=== PATIENT | male | born 1970 | race Caucasian/White ===

== ENCOUNTER → 2016-07-06 | Outpatient (CLI) | payer OTHER ==
[~2016-07-06] MED LIST: CHOL1000 PO; GADOXETATE DISODIUM IV PRN; IBUP-103 PO; LEVO100T7 PO; MULT-506 PO; OXYC-57 PO; PROB1TAB16 PO
--- NOTE | 2016-07-07 08:41 | DIAGNOSTIC IMAGING REPORT ---
MRI OF THE ABDOMEN WITH AND WITHOUT CONTRAST LIVER PROTOCOL CLINICAL HISTORY: Elevated alkaline phosphatase. Abdominal cramping. Liver lesion. COMPARISON STUDY: Abdominal ultrasound June 24, 2016. TECHNIQUE: Utilizing a 1.5 Neyda magnet and dedicated coil, multiplanar, multiecho imaging of the abdomen was performed pre and postcontrast administration. Post contrast imaging was performed utilizing dynamic enhancement. Injection of 10 cc of Eovist IV was unremarkable. 20 minute delayed phase imaging was performed. FINDINGS: The morphology of the liver is normal. There is fatty infiltration of the liver. Note is made of a 3.7 x 3.4 cm subcapsular segment 5 hepatic lesion with nodular incomplete enhancement with progressive fill in. This corresponds to the lesion shown on prior ultrasound. This represents a hemangioma. There is an adjacent 1.4 cm lesion which also reflects a hemangioma. The spleen, adrenal glands, left kidney and pancreas are normal. There is a 2.3 cm right renal cyst with minimal layering debris. There is no abdominal lymphadenopathy or ascites. There is a 4 mm left hepatic lobe cyst. IMPRESSION: 1. 3.7 cm right hepatic lobe lesion which corresponds to the lesion shown on prior ultrasound. The imaging characteristics are consistent with a hemangioma. In addition, there is adjacent smaller hemangioma. 2. Fatty infiltration of the liver. 3. No biliary ductal dilatation. Electronically signed by: Jeffery Abdi M.D. 07/07/2016 8:39 AM
== END | disposition home or self-care (01) ==
LOC: C.MRI 13:58
PROVIDERS: ATTEND Internal Medicine
DX: K76.9 Liver disease, unspecified (principal); R10.9 Unspecified abdominal pain; R74.8 Abnormal levels of other serum enzymes; R93.2 Abnormal findings on diagnostic imaging of liver and biliary tract

== ENCOUNTER 2016-08-10 15:43 | Emergency (ER) | payer OTHER ==
[~2016-08-10] VITALS: Ht 180.3 cm; Wt 105.0 kg
[2016-08-10 16:16] VITALS: TEMP 37.1; Ht 180.3 cm; Wt 105.0 kg
--- NOTE | 2016-08-10 18:03 | EMERGENCY ROOM VISIT NOTE ---
History Report prepared by Karl: Ellie Rodas Under the Supervision of: Dr. Andrew Escobar M.D. First contact with patient: 17:48 Chief Complaint: ABDOMINAL PAIN Stated Complaint: BACK PAIN RADIATING TO CHEST Nursing Triage Summary: c/o abd pain to left shoulder and back and now its into his chest History of Present Illness The patient is a 45 year old male who presents to the Emergency Room with complaints of waxing and waning left sided upper back pain that began about a week ago. The patient notes that the pain radiates through his left flank and under his left ribs. He has some increased pain when he takes a deep breath. He also complains of nausea and loose stool. The patient notes that the pain wakes him up in his sleep but typically does improve throughout the day. Today, his pain continued to worsen throughout the day so he decided to come to the ER. He took Tums, Pepcid, and used a heating pad without any relief. The patient did see his PCP yesterday morning for his symptoms. He does not have a history of heart disease. He had an echocardiogram several years ago which was unremarkable. He has a history of high triglycerides and high cholesterol. The patient is a smoker. Denies fever, vomiting, or other complaints. Source of History: patient Onset: a week ago Position: back (left upper) Timing: waxes/wanes Modifying Factors (Worsening): breathing (deep breaths) Associated Symptoms: + nausea, No fevers, No vomiting Review of Systems See HPI for pertinent positives & negatives. A total of 10 systems reviewed and were otherwise negative. Past Medical & Surgical Medical Problems: (1) High cholesterol (2) High triglycerides Family History No pertinent family history stated. Social History Smoking Status: Current Every Day Smoker Marital Status: Occupation Status: employed Current/Historical Medications Scheduled Cholecalciferol (Vitamin D3), 1,000 INTER.UNIT PO DAILY Levothyroxine Sodium (Levothyroxine Sodium), 100 MCG PO DAILY Scheduled PRN Ibuprofen Tab (Advil), 400 MG PO Q6H PRN for Pain or Fever Oxycodone/Acetaminophen 5MG/325MG (Percocet 5MG/325MG), 1-2 TAB PO Q4H PRN for Pain Allergies Coded Allergies: No Known Allergies (Unverified , 08/10/16) Physical Exam Vital Signs Date Time Temp Pulse Resp B/P Pulse Ox O2 Delivery O2 Flow Rate FiO2 08/10/16 22:50 81 20 147/97 96 Room Air 08/10/16 20:21 153/95 08/10/16 18:54 86 20 169/102 96 Room Air 08/10/16 18:53 96 Room Air 08/10/16 18:53 96 Room Air 08/10/16 18:50 169/102 08/10/16 18:43 88 14 95 08/10/16 17:56 88 08/10/16 17:47 154/104 08/10/16 16:16 37.1 94 16 165/116 97 Physical Exam GENERAL: Patient is a healthy-appearing well-nourished 45 year old male. HEAD: Normocephalic atraumatic EYES: Ocular movements intact pupils equal and react to light OROPHARYNX mucous membranes are moist no exudates present no erythema or edema present NECK: Supple no nuchal rigidity CHEST: Good equal expansion LUNGS: Clear and equal to auscultation CARDIAC: Normal S1 and S2 ABDOMEN: Soft nontender no guarding BACK: No CVA tenderness EXTREMITIES: No pain upon palpation normal muscle strength in all groups no clubbing cyanosis or edema NEURO: Patient is following commands is answering questions appropriately. Alert and oriented x3 Cranial Nerves 2-12 grossly intact Medical Decision & Procedures ER Provider Diagnostic Interpretation: Radiology results as stated below per my review and radiologist interpretation: CHEST ONE VIEW PORTABLE CLINICAL HISTORY: CHEST PAIN dyspnea COMPARISON STUDY: No previous studies for comparison. FINDINGS: The bones soft tissues and hemidiaphragms are normal. The cardiomediastinal silhouette is normal. The lungs are clear. The pulmonary vasculature is normal. IMPRESSION: Negative chest. Electronically signed by: Wilton Ferrell M.D. 08/10/2016 6:24 PM Dictated Date/Time: 08/10/2016 6:24 PM CHEST CTA for PULMONARY ARTERIES CT DOSE: 603.77 mGycm HISTORY: Chest pain dyspnea TECHNIQUE: Multiaxial CT images of the chest were performed following the intravenous administration of contrast to evaluate the pulmonary arteries. Maximal intensity projection images were also obtained. COMPARISON STUDY: None. FINDINGS: There is a normal caliber thoracic aorta with no evidence for dissection. There is no evidence for pulmonary embolus. No pleural effusions. No pneumothorax. The liver and spleen are unremarkable. No mediastinal or hilar lymphadenopathy. The central airways are patent. The lungs are clear. IMPRESSION: No evidence for pulmonary embolus. Electronically signed by: Wilton Ferrell M.D. 08/10/2016 7:46 PM Dictated Date/Time: 08/10/2016 7:43 PM A[address]OMEN AND PELVIS CT WITHOUT CONTRAST CT DOSE: 1498.98 mGy.cm HISTORY: Flank pain Pt c/o left sided flank pain TECHNIQUE: Multiaxial CT images of the abdomen and pelvis were performed without the use of intravenous and oral contrast according to the standard department stone protocol. COMPARISON STUDY: None. FINDINGS: Lung bases are clear. Liver spleen and pancreas are unremarkable. Evaluation the urinary tracts is compromised due to the presence of residual contrast from a prior CT of the chest. No less, there is no evidence for true obstructive change. Nephrograms appear to be symmetric bilaterally. There is no cephalic right renal cyst. Gallbladder is negative for distention. Bowel pattern is considered nonobstructive throughout. The appendix is normal. IMPRESSION: 1. Negative study within limitations of residual contrast within the urinary tracts. 2. No evidence for hydronephrosis or upper tract obstructive change. 3. Small right renal cyst. 4. Nonobstructive bowel pattern. Electronically signed by: Wilton Ferrell M.D. 08/10/2016 9:43 PM Dictated Date/Time: 08/10/2016 9:41 PM Laboratory Results 08/10/16 17:30 Red Blood Count 4.86, Mean Corpuscular Volume 87.9, Mean Corpuscular Hemoglobin 31.1, Mean Corpuscular Hemoglobin Concent 35.4, Mean Platelet Volume 10.8, Neutrophils (%) (Auto) 85.6, Lymphocytes (%) (Auto) 9.8, Monocytes (%) (Auto) 4.0, Eosinophils (%) (Auto) 0.1, Basophils (%) (Auto) 0.2, Neutrophils # (Auto) 14.90, Lymphocytes # (Auto) 1.70, Monocytes # (Auto) 0.70, Eosinophils # (Auto) 0.02, Basophils # (Auto) 0.03 08/10/16 17:30 Test 08/10/16 00:00 08/10/16 17:30 08/10/16 19:00 08/10/16 20:13 Urine Color YELLOW Urine Appearance CLEAR (CLEAR) Urine pH 6.5 (4.5-7.5) Urine Specific [place] 1.018 (1.000-1.030) Urine Protein NEG (NEG) Urine Glucose (UA) NEG (NEG) Urine Ketones NEG (NEG) Urine Occult Blood 1+ (NEG) Urine Nitrite NEG (NEG) Urine Bilirubin NEG (NEG) Urine Urobilinogen NEG (NEG) Urine Leukocyte Esterase NEG (NEG) Urine WBC (Auto) 0 /hpf (0-5) Urine RBC (Auto) 5-10 /hpf (0-4) Urine Hyaline Casts (Auto) 0 /lpf (0-5) Urine Epithelial Cells (Auto) 0-5 /lpf (0-5) Urine Bacteria (Auto) NEG (NEG) White Blood Count 17.41 K/uL (4.8-10.8) Red Blood Count 4.86 M/uL (4.7-6.1) Hemoglobin 15.1 g/dL (14.0-18.0) Hematocrit 42.7 % (42-52) Mean Corpuscular Volume 87.9 fL (80-100) Mean Corpuscular Hemoglobin 31.1 pg (25-34) Mean Corpuscular Hemoglobin Concent 35.4 g/dl (32-36) Platelet Count 322 K/uL (130-400) Mean Platelet Volume 10.8 fL (7.4-10.4) Neutrophils (%) (Auto) 85.6 % Lymphocytes (%) (Auto) 9.8 % Monocytes (%) (Auto) 4.0 % Eosinophils (%) (Auto) 0.1 % Basophils (%) (Auto) 0.2 % Neutrophils # (Auto) 14.90 K/uL (1.4-6.5) Lymphocytes # (Auto) 1.70 K/uL (1.2-3.4) Monocytes # (Auto) 0.70 K/uL (0.11-0.59) Eosinophils # (Auto) 0.02 K/uL (0-0.5) Basophils # (Auto) 0.03 K/uL (0-0.2) RDW Standard Deviation 38.4 fL (36.4-46.3) RDW Coefficient of Variation 12.0 % (11.5-14.5) Immature Granulocyte % (Auto) 0.3 % Immature Granulocyte # (Auto) 0.06 K/uL (0.00-0.02) Est Creatinine Clear Calc Drug Dose 102.3 ml/min Estimated GFR () 92.2 Estimated GFR (Non- 79.5 BUN/Creatinine Ratio 13.0 (10-20) Calcium Level 9.6 mg/dl (8.5-10.1) Total Bilirubin 0.6 mg/dl (0.2-1) Direct Bilirubin 0.1 mg/dl (0-0.2) Aspartate Amino Transf (AST/SGOT) 25 U/L (15-37) Alanine Aminotransferase (ALT/SGPT) 92 U/L (12-78) Alkaline Phosphatase 90 U/L (45-117) Total Creatine Kinase 71 U/L (39-308) Creatine Kinase MB 1.1 ng/ml (0.5-3.6) Creatine Kinase MB Ratio 1.5 (0-3.0) Troponin I < 0.015 ng/ml (0-0.045) Total Protein 7.6 gm/dl (6.4-8.2) Albumin 4.3 gm/dl (3.4-5.0) Lipase 123 U/L (73-393) Bedside Hemoglobin 13.6 g/dl (14.0-18.0) Bedside Hematocrit 40 % (42-52) Bedside Sodium 134 mEq/L (135-144) Bedside Potassium 3.8 mEq/L (3.3-5.0) Bedside Chloride 96 mEq/L (101-112) Bedside Total CO2 22 mEq/l (24-31) Anion Gap 20.0 mmol/L (16-25) Bedside Blood Urea Nitrogen 14 mg/dl (7-18) Bedside Creatinine 0.9 mg/dl (0.6-1.3) Bedside Glucose (other) 148 mg/dl (70-99) Bedside Ionized Calcium (Jayne) 1.18 mmol/l (1.12-1.32) Bedside Troponin I 0.020 ng/ml (0-0.045) Labs reviewed by ED physician. Medications Administered Medications (Trade) Dose Ordered Sig/Dyan Route Start Time Stop Time Status Last Admin Dose Admin Sodium Chloride (Nss 500ml) 500 ml @ 999 mls/hr Q31M STAT IV 08/10/16 18:10 08/10/16 18:40 DC 08/10/16 18:10 999 MLS/HR Hydromorphone HCl (Dilaudid Inj) 1 mg NOW STAT IV 08/10/16 18:10 08/10/16 18:12 DC 08/10/16 18:53 1 MG Ondansetron HCl (Zofran Inj) 4 mg NOW STAT IV 08/10/16 18:10 08/10/16 18:12 DC 08/10/16 18:52 4 MG Famotidine (Pepcid Tab) 20 mg NOW STAT PO 08/10/16 20:02 08/10/16 20:04 DC 08/10/16 20:19 20 MG Sucralfate (Carafate Tab) 1 gm NOW STAT PO 08/10/16 20:02 08/10/16 20:04 DC 08/10/16 20:19 1 GM Al Hydroxide/Mg Hydroxide (Maalox Susp) 30 ml STK-MED ONCE .ROUTE 08/10/16 20:12 08/10/16 20:14 DC 08/10/16 20:18 12 ML Lidocaine HCl (Viscous Lidocaine 2% Soln) 20 ml STK-MED ONCE .ROUTE 08/10/16 20:12 08/10/16 20:14 DC 08/10/16 20:19 12 ML Ketorolac Tromethamine (Toradol Inj) 30 mg NOW STAT IV 08/10/16 21:54 08/10/16 21:56 DC 08/10/16 22:47 30 MG Hydromorphone HCl (Dilaudid Inj) 1 mg NOW STAT IV 08/10/16 21:54 08/10/16 21:56 DC 08/10/16 22:46 1 MG Metoclopramide HCl (Reglan Inj) 10 mg NOW STAT IV 08/10/16 21:54 08/10/16 21:56 DC 08/10/16 22:47 10 MG Oxycodone/ Acetaminophen (Percocet 5/ 325MG Home Pack) 1 homepack UD ONCE PO 08/10/16 23:15 08/10/16 23:16 DC 08/10/16 23:13 1 HOMEPACK ECG Indication: chest pain Rate (beats per minute): 86 Rhythm: normal sinus Findings: no acute ischemic change, no ectopy ED Course 1752: The patient was evaluated in room B7. A complete history and physical examination was performed. 1809: Ordered Zofran Inj 4 mg IV, Dilaudid Inj 1 mg IV, NSS 500 ml @ 999 mls/hr IV. 2001: Ordered Sucralfate 1 gm PO, Pepcid Tab 30 mg PO, GI cocktail 24 ml PO. 2153: Ordered Reglan Inj 10 mg IV, Dilaudid Inj 1 mg IV, Toradol Inj 30 mg IV. 2199: Upon reexamination the patient is resting comfortably. I discussed results and treatment plan with the patient. He verbalizes agreement and understanding. The patient is ready for discharge. Medical Decision Differential diagnosis: Etiologies such as cardiac ischemia, aortic dissection, pulmonary embolism, pneumonia, pneumothorax, musculoskeletal, infections, pericarditis, myocarditis , esophageal rupture, gastrointestinal, as well as others were entertained. This is a 45-year-old male who presents emergency department complaining of left -sided flank pain. I will note the patient has a large elevation in his white blood count 17 however has no evidence of infection on examination. He is afebrile. Chest x-ray did not show anything in regards to pneumonia. Based on where the pain was located the patient was sent for CAT scan of the chest which did not show acute. In addition because the patient was continuing to have pain he was sent for a CT the abdomen and pelvis this also did not show anything acute. His repeat EKG is also unchanged. The patient also had a repeat troponin level drawn which was also 0. Based on these factors I feel that the patient can be safely discharged home. At the time I was talking to the patient at the time of discharge, he stated that he had issues with uric acid. It is conceivable that this could be a uric acid stone. For that reason the patient was given pain medication. He was given 2 doses of IV Dilaudid in the emergency department along with normal saline bolus. He will be given a prescription for Percocet however I stressed the need for follow-up with gastroenterology. Patient will return if symptoms worsen and was in agreement with the treatment plan.- Impression Primary Impression: Flank pain Scribe Attestation The scribe's documentation has been prepared under my direction and personally reviewed by me in its entirety. I confirm that the note above accurately reflects all work, treatment, procedures, and medical decision making performed by me. Departure Information Dispostion Home / Self-Care Prescriptions Oxycodone/Acetaminophen 5MG/325MG (PERCOCET 5MG/325MG) Tab 1-2 TAB PO Q4H Y for Pain, #14 TAB Prov: Andrew Escobar MD 08/10/16 Referrals RV. Perkins MD (PCP) Forms Call Back Authorization, HOME CARE DOCUMENTATION FORM, IMPORTANT VISIT INFORMATION Patient Instructions ED Flank Pain Uncertain Cause, My [facility] Additional Instructions Clear liquid diet next 48 hours Take 5 ml Maalox before every meal and at bedtime Follow up with DR White's office You received narcotic or benzodiazepene medication while in the emergency room today. Do not drive, operate heavy machinery, or drink alcohol under the influence of this medication. Take 600 mg Ibuprofen every 6 hours Take Percocet for breakthrough pain You have been examined and treated today on an emergency basis only. This is not a substitute for, or an effort to provide, complete comprehensive medical care. It is impossible to recognize and treat all injuries or illnesses in a single emergency department visit. It is therefore important that you follow up closely with [facility]. Call as soon as possible for an appointment. Thank you for your time and consideration. I look forward to speaking with you again soon. Please don't hesitate to call us if you have any questions.
[2016-08-10] MEDS ORDERED: ONDANSETRON INJ 2 MG/ML 2 ML VIAL IV STA (18:10)
[2016-08-10] MEDS ORDERED: HYDROmorphone INJ 1 MG/ML SYR IV STA ×2 (18:10→21:54)
[2016-08-10] MEDS ORDERED: SODIUM CHLORIDE 0.9% 500ML 500 ML IV STA (18:10)
[2016-08-10] MEDS ORDERED: OPTIRAY 320 IV PRN (18:15)
--- NOTE | 2016-08-10 18:26 | DIAGNOSTIC IMAGING REPORT ---
CHEST ONE VIEW PORTABLE CLINICAL HISTORY: CHEST PAIN dyspnea COMPARISON STUDY: No previous studies for comparison. FINDINGS: The bones soft tissues and hemidiaphragms are normal. The cardiomediastinal silhouette is normal. The lungs are clear. The pulmonary vasculature is normal. IMPRESSION: Negative chest. Electronically signed by: Wilton Ferrell M.D. 08/10/2016 6:24 PM Dictated Date/Time: 08/10/2016 6:24 PM
[2016-08-10 18:31] LABS: HEMATOCRIT 42.7 % (42-52); MEAN CELL VOLUME 87.9 fL (80-100); MEAN CORPUSCULAR HEMOGLOBIN 31.1 pg (25-34); MEAN CORPUSCULAR HGB CONC 35.4 g/dl (32-36); MEAN PLATELET VOLUME 10.8 fL (7.4-10.4); PLATELET COUNT 322 K/uL (130-400); RED BLOOD COUNT 4.86 M/uL (4.7-6.1); WHITE BLOOD COUNT 17.41 K/uL (4.8-10.8)
[2016-08-10] MEDS ORDERED: LEVO100T7 PO (18:32)
[2016-08-10] MEDS ORDERED: CHOL1000 PO (18:32)
[2016-08-10] MEDS ORDERED: IBUP-103 PO (18:32)
[2016-08-10 18:44] LABS: ALT/SGPT 92 U/L (12-78); AST/SGOT 25 U/L (15-37); BLOOD UREA NITROGEN 14 mg/dl (7-18); CALCIUM 9.6 mg/dl (8.5-10.1); CARBON DIOXIDE 26 mmol/L (21-32); CHLORIDE 99 mmol/L (98-107); GLUCOSE 150 mg/dl (70-99); POTASSIUM 3.9 mmol/L (3.5-5.1); SODIUM 136 mmol/L (136-145)
[2016-08-10 18:49] LABS: ALKALINE PHOSPHATASE 90 U/L (45-117); CKMB/CK RATIO 1.5 (0-3.0)
[2016-08-10 18:53] VITALS: O2SAT 96
[2016-08-10 19:16] LABS: ISTAT CREATININE 0.9 mg/dl (0.6-1.3); ISTAT HEMOGLOBIN 13.6 g/dl (14.0-18.0); ISTAT IONIZED CALCIUM 1.18 mmol/l (1.12-1.32)
[2016-08-10 19:41] LABS: BASO % 0.2 %; BASO ABS # 0.03 K/uL (0-0.2); COMPLETE YES; EOS % 0.1 %; IG% 0.3 %; LYMPH % 9.8 %; NEUT % 85.6 %
--- NOTE | 2016-08-10 19:47 | DIAGNOSTIC IMAGING REPORT ---
CHEST CTA for PULMONARY ARTERIES CT DOSE: 603.77 mGycm HISTORY: Chest pain dyspnea TECHNIQUE: Multiaxial CT images of the chest were performed following the intravenous administration of contrast to evaluate the pulmonary arteries. Maximal intensity projection images were also obtained. COMPARISON STUDY: None. FINDINGS: There is a normal caliber thoracic aorta with no evidence for dissection. There is no evidence for pulmonary embolus. No pleural effusions. No pneumothorax. The liver and spleen are unremarkable. No mediastinal or hilar lymphadenopathy. The central airways are patent. The lungs are clear. IMPRESSION: No evidence for pulmonary embolus. Electronically signed by: Wilton Ferrell M.D. 08/10/2016 7:46 PM Dictated Date/Time: 08/10/2016 7:43 PM
[2016-08-10] MEDS ORDERED: GI COCKTAIL PO STA (20:02)
[2016-08-10] MEDS ORDERED: SUCRALFATE 1 GM TAB PO STA (20:02)
[2016-08-10] MEDS ORDERED: FAMOTIDINE 20 MG TAB PO STA (20:02)
[2016-08-10] MEDS ORDERED: LIDOCAINE HCL 2% VISC SOLN 20 ML UDC ONE (20:12)
[2016-08-10] MEDS ORDERED: ALUMINUM/MAGNESIUM SUSP 30 ML UDC ONE (20:12)
[2016-08-10 20:45] LABS: URINE APPEARANCE CLEAR (CLEAR); URINE BILIRUBIN NEG (NEG); URINE COLOR YELLOW; URINE EPITHELIAL CELL AUTO 0-5 /lpf (0-5); URINE NITRITE NEG (NEG); URINE PH 6.5 (4.5-7.5); URINE SPECIFIC GRAVITY 1.018 (1.000-1.030); UROBILINOGEN NEG (NEG); ZZUR CULT IF INDIC CLEAN CATCH NO
[2016-08-10 20:47] LABS: MANUAL MICROSCOPIC REQUIRED? NO; REVIEW REQ? NO
--- NOTE | 2016-08-10 21:44 | DIAGNOSTIC IMAGING REPORT ---
ABDOMEN AND PELVIS CT WITHOUT CONTRAST CT DOSE: 1498.98 mGy.cm HISTORY: Flank pain Pt c/o left sided flank pain TECHNIQUE: Multiaxial CT images of the abdomen and pelvis were performed without the use of intravenous and oral contrast according to the standard department stone protocol. COMPARISON STUDY: None. FINDINGS: Lung bases are clear. Liver spleen and pancreas are unremarkable. Evaluation the urinary tracts is compromised due to the presence of residual contrast from a prior CT of the chest. No less, there is no evidence for true obstructive change. Nephrograms appear to be symmetric bilaterally. There is no cephalic right renal cyst. Gallbladder is negative for distention. Bowel pattern is considered nonobstructive throughout. The appendix is normal. IMPRESSION: 1. Negative study within limitations of residual contrast within the urinary tracts. 2. No evidence for hydronephrosis or upper tract obstructive change. 3. Small right renal cyst. 4. Nonobstructive bowel pattern. Electronically signed by: Wilton Ferrell M.D. 08/10/2016 9:43 PM Dictated Date/Time: 08/10/2016 9:41 PM
[2016-08-10] MEDS ORDERED: METOCLOPRAMIDE HCL INJ 5 MG/ML 2 ML VIAL IV STA (21:54)
[2016-08-10] MEDS ORDERED: KETOROLAC TROMETHAMINE 30 MG/ML VIAL IV STA (21:54)
[2016-08-10] MEDS ORDERED: OXYC-57 PO (21:56)
[2016-08-10 22:50] VITALS: BP 147/97; PULSE 81; O2SAT 96
[2016-08-10] MEDS ORDERED: PERCOCET HOME PACK PO ONE (23:15)
[2016-09-13] MEDS ORDERED: PROB1TAB16 PO (08:50)
[2016-09-13] MEDS ORDERED: MULT-506 PO (08:50)
== END 2016-08-10 23:15 | disposition home or self-care (01) ==
LOC: C.EDB 15:44
DX: R10.30 Lower abdominal pain, unspecified (principal); E78.00 Pure hypercholesterolemia, unspecified; E78.1 Pure hyperglyceridemia; F17.200 Nicotine dependence, unspecified, uncomplicated; Z79.899 Other long term (current) drug therapy

== ENCOUNTER → 2016-08-12 | Outpatient (CLI) | payer OTHER ==
[~2016-08-12] MED LIST changes: -GADOXETATE DISODIUM IV PRN
--- NOTE | 2016-08-12 14:19 | DIAGNOSTIC IMAGING REPORT ---
THORACIC SPINE 3 VIEWS ROUTINE CLINICAL HISTORY: Blood in urine. Left upper quadrant tenderness. COMPARISON STUDY: Chest CT August 10, 2016. FINDINGS: Alignment of the thoracic spine is anatomic. Vertebral body heights are maintained. There is no acute fracture or suspicious lesion. Disc spaces are preserved. IMPRESSION: Unremarkable thoracic spine radiographs. Electronically signed by: Jeffery Abdi M.D. 08/12/2016 2:17 PM Dictated Date/Time: 08/12/2016 2:11 PM
--- NOTE | 2016-08-12 14:26 | DIAGNOSTIC IMAGING REPORT ---
LEFT RIBS UNILATERAL MIN 2 VIEWS CLINICAL HISTORY: Left upper quadrant tenderness. COMPARISON STUDY: Chest CT August 10, 2016. FINDINGS: Linear left lower lung opacities suggest atelectasis. No acute left-sided rib fracture is identified. No pneumothorax is shown on this exam. IMPRESSION: No acute left rib fractures identified. Electronically signed by: Jeffery Abdi M.D. 08/12/2016 2:25 PM Dictated Date/Time: 08/12/2016 2:21 PM
== END | disposition home or self-care (01) ==
LOC: C.RAD1850 13:40
PROVIDERS: ATTEND Internal Medicine
DX: R10.812 Left upper quadrant abdominal tenderness (principal); R31.9 Hematuria, unspecified

== ENCOUNTER → 2016-08-16 | Outpatient (CLI) | payer OTHER ==
[2016-08-16 12:28] LABS: BASO % 0.6 %; BASO ABS # 0.06 K/uL (0-0.2); COMPLETE YES; EOS % 1.8 %; HEMATOCRIT 42.6 % (42-52); IG% 0.4 %; LYMPH % 25.8 %; LYMPH ABS # 2.69 K/uL (1.2-3.4); MEAN CELL VOLUME 88.8 fL (80-100); MEAN CORPUSCULAR HGB CONC 33.8 g/dl (32-36); MEAN PLATELET VOLUME 10.2 fL (7.4-10.4); MONO % 8.6 %; NEUT % 62.8 %; PLATELET COUNT 394 K/uL (130-400); WHITE BLOOD COUNT 10.44 K/uL (4.8-10.8)
[2016-08-16 12:29] LABS: URINE APPEARANCE CLEAR (CLEAR); URINE BILIRUBIN NEG (NEG); URINE COLOR YELLOW; URINE EPITHELIAL CELL AUTO 0-5 /lpf (0-5); URINE NITRITE NEG (NEG); URINE PH 6.5 (4.5-7.5); URINE SPECIFIC GRAVITY 1.004 (1.000-1.030); UROBILINOGEN NEG (NEG)
[2016-08-16 12:30] LABS: MANUAL MICROSCOPIC REQUIRED? NO; REVIEW REQ? NO
== END | disposition home or self-care (01) ==
LOC: C.LAB1850 11:28
PROVIDERS: ATTEND Internal Medicine
DX: R31.9 Hematuria, unspecified (principal)

== ENCOUNTER → 2016-09-21 | Outpatient (CLI) | payer OTHER ==
[~2016-09-21] MED LIST changes: -CHOL1000 PO; -IBUP-103 PO; -OXYC-57 PO
[2016-09-21 09:40] LABS: URINE APPEARANCE CLEAR (CLEAR); URINE BILIRUBIN NEG (NEG); URINE COLOR YELLOW; URINE EPITHELIAL CELL AUTO 0-5 /lpf (0-5); URINE NITRITE NEG (NEG); URINE SPECIFIC GRAVITY 1.009 (1.000-1.030); UROBILINOGEN NEG (NEG)
[2016-09-21 09:51] LABS: MANUAL MICROSCOPIC REQUIRED? NO; REVIEW REQ? NO
[2016-09-21 13:45] LABS: LYME DISEASE AB IGG NEG (NEG)
[2016-09-21 13:46] LABS: LYME DISEASE AB IGM NEG (NEG)
== END | disposition home or self-care (01) ==
LOC: C.LAB1850 08:21
PROVIDERS: ATTEND Internal Medicine
DX: R31.9 Hematuria, unspecified (principal); M25.50 Pain in unspecified joint

== ENCOUNTER → 2016-09-22 | Outpatient (CLI) | payer OTHER ==
[2016-09-22 16:41] LABS: HEMATOCRIT 44.8 % (42-52); MEAN CELL VOLUME 89.2 fL (80-100); MEAN CORPUSCULAR HEMOGLOBIN 30.1 pg (25-34); MEAN CORPUSCULAR HGB CONC 33.7 g/dl (32-36); MEAN PLATELET VOLUME 10.1 fL (7.4-10.4); PLATELET COUNT 484 K/uL (130-400); RED BLOOD COUNT 5.02 M/uL (4.7-6.1); WHITE BLOOD COUNT 16.94 K/uL (4.8-10.8)
[2016-09-22 17:06] LABS: RHEUMATOID FACTOR < 10.0 U/mL (0-15); URIC ACID 7.9 mg/dl (2.6-7.2)
== END | disposition home or self-care (01) ==
LOC: C.LAB1850 15:34
PROVIDERS: ATTEND Physician Assistant
DX: M25.50 Pain in unspecified joint (principal)

== ENCOUNTER → 2017-01-03 | Outpatient (CLI) | payer OTHER ==
[2017-01-03 17:47] LABS: MEAN CELL VOLUME 89.4 fL (80-100); MEAN CORPUSCULAR HEMOGLOBIN 31.1 pg (25-34); MEAN CORPUSCULAR HGB CONC 34.8 g/dl (32-36); MEAN PLATELET VOLUME 11.1 fL (7.4-10.4); PLATELET COUNT 306 K/uL (130-400); RED BLOOD COUNT 4.92 M/uL (4.7-6.1); WHITE BLOOD COUNT 11.62 K/uL (4.8-10.8)
== END | disposition home or self-care (01) ==
LOC: C.LAB1850 15:39
PROVIDERS: ATTEND Physician Assistant
DX: M10.9 Gout, unspecified (principal)

== ENCOUNTER → 2017-05-18 | Outpatient (CLI) | payer OTHER ==
--- NOTE | 2017-05-18 12:45 | DIAGNOSTIC IMAGING REPORT ---
CHEST 2 VIEWS ROUTINE HISTORY: COUGH COMPARISON: Chest 08/20/2016. FINDINGS: The lungs are clear. Cardiac silhouette is normal in size. No pleural effusions. No pneumothorax. IMPRESSION: No acute process. Electronically signed by: Andrea Rayo M.D. 05/18/2017 12:44 PM Dictated Date/Time: 05/18/2017 12:42 PM
== END | disposition home or self-care (01) ==
LOC: C.RAD1850 12:20
PROVIDERS: ATTEND Physician Assistant
DX: R05 Cough (principal)

== ENCOUNTER → 2017-10-17 | Outpatient (CLI) | payer BC ==
[2017-10-17 13:28] LABS: BASO % 0.4 %; BASO ABS # 0.04 K/uL (0-0.2); EOS % 1.5 %; EOS ABS # 0.14 K/uL (0-0.5); HEMATOCRIT 46.3 % (42-52); HEMOGLOBIN 15.9 g/dL (14.0-18.0); IG# 0.03 K/uL (0.00-0.02); LYMPH % 24.6 %; LYMPH ABS # 2.36 K/uL (1.2-3.4); MEAN CELL VOLUME 91.1 fL (80-100); MEAN CORPUSCULAR HEMOGLOBIN 31.3 pg (25-34); MEAN CORPUSCULAR HGB CONC 34.3 g/dl (32-36); MEAN PLATELET VOLUME 10.5 fL (7.4-10.4); MONO % 7.2 %; MONO ABS # 0.69 K/uL (0.11-0.59); NEUT ABS # 6.34 K/uL (1.4-6.5); PLATELET COUNT 302 K/uL (130-400); RED CELL DISTRIBUTION WIDTH CV 12.4 % (11.5-14.5); RED CELL DISTRIBUTION WIDTH SD 41.3 fL (36.4-46.3)
[2017-10-17 14:01] LABS: URIC ACID 8.4 mg/dl (2.6-7.2)
== END | disposition home or self-care (01) ==
LOC: C.LAB1850 11:38
PROVIDERS: ATTEND Internal Medicine
DX: E03.9 Hypothyroidism, unspecified (principal); E78.5 Hyperlipidemia, unspecified; J00 Acute nasopharyngitis [common cold]; R31.9 Hematuria, unspecified; M10.9 Gout, unspecified

== ENCOUNTER → 2018-02-02 | Outpatient (CLI) | payer BC | END | disposition home or self-care (01) | LOC: C.LABSPEC 17:18 | PROVIDERS: ATTEND Urology | DX: R31.9 Hematuria, unspecified (principal) ==